=== PATIENT | male | born 1940 | race Caucasian/White ===

== ENCOUNTER → 2023-12-31 10:41 | Outpatient (REF) | payer MEDICARE, OTHER, SELFPAY | LOC: RAD 10:41 | PROVIDERS: ATTENDING PHYSICIAN Advanced Practice Midwife; FAMILY PHYSICIAN Family Medicine | DX: C64.9 Malignant neoplasm of unspecified kidney, except renal pelvis (principal) | CPT/HCPCS: 71046; 73564; 76775 ==

== ENCOUNTER 2025-02-09 15:12 | Emergency (ER) | payer MEDICARE, OTHER, SELFPAY ==
[2025-02-09 15:20] VITALS: BP 169/90
[2025-02-09 16:36] VITALS: BP 158/102
[2025-02-09] MEDS: NSS 1000 IV (16:37)
[2025-02-09 16:47] LABS: % Basophils 0.5 % (0-2); % Eosinophils 2.4 % (0-6); % Immature Granulocytes 0.3 % (0-0.5); % Lymphocytes 11.8 % (20.5-51.1); % Monocytes 7.2 % (1.7-9.3); % Neutrophils 77.8 % (42.2-75.2); Absolute Basophils 0.1 10^3/uL (0-0.2); Absolute Eosinophils 0.3 10^3/uL (0-0.7); Absolute Lymphocytes 1.5 10^3/uL (1.2-3.4); Absolute Monocytes 0.9 10^3/uL (0.1-0.6); Absolute Neutrophils 9.9 10^3/uL (1.4-6.5); Hematocrit 48.2 % (39.0-52.0); Hemoglobin 16.5 g/dL (13.0-18.0); Mean Corp Hgb Conc. 34.2 g/dL (33.0-37.0); Mean Corpuscular Hgb 32.4 pg (27.0-31.0); Mean Corpuscular Volume 94.7 fL (80.0-94.0); Mean Platelet Volume 11.4 fL (7.4-10.4); Nucleated Red Blood Cells % 0 % (-); Platelet Count 169 10^3/uL (130-400); Red Blood Cell Count 5.09 10^6/uL (4.70-6.10); Red Cell Dist. Width 13.5 % (11.5-14.5); White Blood Cell Count 12.7 10^3/uL (4.8-10.8)
[2025-02-09 16:48] LABS: Urine Albumin 2+ (Neg - Trace); Urine Bilirubin Negative (Negative); Urine Character Clear (Clear); Urine Color Yellow; Urine Glucose Negative (Negative); Urine Ketone Negative (Negative); Urine Leukocyte Negative (Negative); Urine Nitrite Negative (Negative); Urine Occult Blood 2+ (Negative); Urine Urobilinogen Negative (Neg - 1+)
[2025-02-09 17:00] VITALS: BP 175/115
[2025-02-09 17:01] LABS: Urine Bacteria Few (Negative); Urine Squamous Cell 0-2 /LPF (Few); Urine White Cell 0-2 /HPF (0-5)
[2025-02-09 17:02] LABS: ALT (SGPT) 17 U/L (0-50); AST (SGOT) 21 U/L (17-59); Albumin 4.3 g/dl (3.5-5.0); Alkaline Phosphatase 63 U/L (38-126); Blood Urea Nitrogen 18 mg/dl (9-20); Calcium 10.6 mg/dl (8.4-10.2); Carbon Dioxide 26 mmol/L (22-30); Chloride 101 mmol/L (98-107); Glucose 99 mg/dl (70-99); Lipase 1351 U/L (23-300); Potassium 4.3 mmol/L (3.5-5.1); Sodium 136 mmol/L (135-145); Total Bilirubin 1.3 mg/dl (0.2-1.3); Total Protein 6.9 g/dl (6.3-8.2); eGFR 59.26
[2025-02-09 17:14] LABS: Troponin I 0.046 ng/ml
[2025-02-09 17:50] VITALS: BP 167/127
--- NOTE | 2025-02-09 17:56 | ED.GENMED ---
History of Present Illness
<Brigitte Miller PA-C - Last Filed: 02/09/25 19:13>
General
Chief Complaint: Abdominal Pain
Source: patient
Exam Limitations: none
Time Seen by Provider: 02/09/25 15:52
Nursing documentation reviewed up to this point in time: agreed with
History of Present Illness
History of Present Illness:
Patient is a 84-year-old male with history of hypertension, kidney cancer s/p left nephrectomy presenting to the emergency department for abdominal pain. Patient states he has had pain in his left lower abdomen past 4 days. There was no radiation
of pain into his groin. However�he did note some mild back discomfort, as well. Symptoms seem to come and go with no clear positional component. Patient has felt mildly nauseous and lightheaded over the past few days. He denies any vomiting,
diarrhea, urinary discomfort. Patient denies any chest pain or shortness of breath.
Patient was seen by his primary care provider today who felt he should be evaluated in the emergency department.
Past History
<Brigitte Miller PA-C - Last Filed: 02/09/25 19:13>
Past History
ED Past Medical History: HTN and Other (Patient has a history of back pain, arthritis, osteoarthritis, carpal tunnel syndrome, renal cell carcinoma)
ED Past Surgical History: Orthopedic, Tonsilectomy and Other (Patient has a history of carpal tunnel surgery as well as total left hip replacement, left renal cell carcinoma removal)
Social History
Tobacco: Non-smoker
Alcohol: Occasional
Drug: None
Personal:
Living: with family
Employment: Retired
Family History
Family History: Other (nc)
Review of Systems
<Brigitte Miller PA-C - Last Filed: 02/09/25 19:13>
Review of Systems
Allergies reviewed?: Yes
All Other Systems: ROS reviewed and negative except as documented in HPI and ROS
Phy Exam
<Brigitte Miller PA-C - Last Filed: 02/09/25 19:13>
Physical Exam
Physical Exam:
Vitals: Hypertensive, otherwise vital signs stable. Afebrile
General: Patient is well appearing, no acute distress. Nontoxic appearing
Skin: Warm and dry, no rashes or lesions
Head: Normocephalic, atraumatic
Eyes: Sclera nonicteric. EOMs intact. No nystagmus.
Throat: Protecting airway
Neck: Normal ROM, no cervical spine tenderness, no meningismus. No JVD
Cardiac: Regular rate and rhythm, no murmurs.
Pulm: Normal respiratory effort, no wheezes, rales, rhonchi heard on exam.
Abdomen: Abdomen soft. Mild tenderness in epigastric region without rebound tenderness or guarding. No rash or ecchymoses.
Extremities: 1+ pitting edema bilateral lower extremities. Palpable DP pulses bilaterally
Neuro: AAOx3. Grossly intact
Psychiatric: Normal affect.
Course
<Brigitte Miller PA-C - Last Filed: 02/09/25 19:13>
Orders/Labs/Results
Orders:
Orders
02/09/25 16:17
0.9% Sodium Chloride 1000 ml [Nss] 1,000 ml IV BOLUS
02/09/25 16:18
Electrocardiogram (*1) Urgent
Reason for Study: Abdominal Pain
EKG- Treatment ONCE
02/09/25 16:29
Complete Blood Count/With Diff Urgent
Comprehensive Metabolic Panel Urgent
Lipase Urgent
Troponin I Urgent
Urinalysis Reflex To Culture Urgent
Date Specimen was Collected: 02/09/25
Time Specimen was Collected: 16:28
Urine Microscopic Reflex Cult Urgent
02/09/25 17:05
CT Abd/pelvis W Iv Cont Urgent
Comment:
Reason For Exam: abdominal pain, nausea, elevated lipase
02/09/25 19:30
EKG- Treatment ONCE
Abnormal Lab Results
02/09/25
16:29
WBC 12.7 H 10^3/uL
(4.8-10.8)
MCV 94.7 H fL
(80.0-94.0)
MCH 32.4 H pg
(27.0-31.0)
MPV 11.4 H fL
(7.4-10.4)
Absolute Neuts (auto) 9.9 H 10^3/uL
(1.4-6.5)
Absolute Monos (auto) 0.9 H 10^3/uL
(0.1-0.6)
Neutrophils % 77.8 H %
(42.2-75.2)
Lymphocytes % 11.8 L %
(20.5-51.1)
Calcium 10.6 H mg/dl
(8.4-10.2)
Troponin I 0.046 H* ng/ml
Lipase 1351 H* U/L
(23-300)
Ur Occult Blood Reflex 2+ A
(Negative)
Urine RBC 7-10 A /HPF
(0-2)
Urine Bacteria (Reflex) Few A
(Negative)
Urine Albumin (Reflex) 2+ A
(Neg - Trace)
02/09/25 16:29
02/09/25 16:29
Vital Signs
Initial and Last Documented VS:
Initial Vital Signs
Temp Pulse Resp BP Pulse Ox
97.8 F 66 16 169/90 99
02/09/25 15:20 02/09/25 15:20 02/09/25 15:20 02/09/25 15:20 02/09/25 15:20
Last Documented Vital Signs
Temp Pulse Resp BP Pulse Ox
97.8 F 70 21 179/108 99
02/09/25 15:20 02/09/25 18:45 02/09/25 18:45 02/09/25 18:28 02/09/25 15:20
<Remigio Macedo, DO - Last Filed: 02/09/25 19:40>
Orders/Labs/Results
Orders:
Orders
02/09/25 16:17
0.9% Sodium Chloride 1000 ml [Nss] 1,000 ml IV BOLUS
02/09/25 16:18
Electrocardiogram (*1) Urgent
Reason for Study: Abdominal Pain
EKG- Treatment ONCE
02/09/25 16:29
Complete Blood Count/With Diff Urgent
Comprehensive Metabolic Panel Urgent
Lipase Urgent
Troponin I Urgent
Urinalysis Reflex To Culture Urgent
Date Specimen was Collected: 02/09/25
Time Specimen was Collected: 16:28
Urine Microscopic Reflex Cult Urgent
02/09/25 17:05
CT Abd/pelvis W Iv Cont Urgent
Comment:
Reason For Exam: abdominal pain, nausea, elevated lipase
02/09/25 19:30
EKG- Treatment ONCE
Abnormal Lab Results
02/09/25
16:29
WBC 12.7 H 10^3/uL
(4.8-10.8)
MCV 94.7 H fL
(80.0-94.0)
MCH 32.4 H pg
(27.0-31.0)
MPV 11.4 H fL
(7.4-10.4)
Absolute Neuts (auto) 9.9 H 10^3/uL
(1.4-6.5)
Absolute Monos (auto) 0.9 H 10^3/uL
(0.1-0.6)
Neutrophils % 77.8 H %
(42.2-75.2)
Lymphocytes % 11.8 L %
(20.5-51.1)
Calcium 10.6 H mg/dl
(8.4-10.2)
Troponin I 0.046 H* ng/ml
Lipase 1351 H* U/L
(23-300)
Ur Occult Blood Reflex 2+ A
(Negative)
Urine RBC 7-10 A /HPF
(0-2)
Urine Bacteria (Reflex) Few A
(Negative)
Urine Albumin (Reflex) 2+ A
(Neg - Trace)
02/09/25 16:29
02/09/25 16:29
Vital Signs
Initial and Last Documented VS:
Initial Vital Signs
Temp Pulse Resp BP Pulse Ox
97.8 F 66 16 169/90 99
02/09/25 15:20 02/09/25 15:20 02/09/25 15:20 02/09/25 15:20 02/09/25 15:20
Last Documented Vital Signs
Temp Pulse Resp BP Pulse Ox
97.8 F 70 21 179/108 99
02/09/25 15:20 02/09/25 18:45 02/09/25 18:45 02/09/25 18:28 02/09/25 15:20
<Brigitte Miller PA-C - Last Filed: 02/09/25 19:13>
MDM/Problems Addressed
Differential Diagnosis Includes:
Not limited to: Viral gastroenteritis, diverticulitis, pancreatitis, appendicitis, pyelonephritis, nephrolithiasis, etc.
MDM/Problems Addressed:
84-year-old male presenting with 4 days of abdominal pain and lightheadedness�referred by PCP after office visit today. No fever, vomiting, chest pain, shortness of breath. Patient hypertensive on arrival, otherwise stable vital signs. Physical
exam as above. While patient describes pain left lower quadrant�he does have mild tenderness in the epigastric region. Abdomen otherwise soft. Differential broad at this time�will give IV fluids and obtain basic labs, urinalysis, troponin and
EKG. Will check CT abdomen/pelvis. Will closely monitor and reassess.
Update: Labs reviewed white count of 12.7. Chemistry unremarkable. Lipase elevated at 1351. Symptoms possibly due to acute pancreatitis although CT is pending. Troponin was found to be elevated to 0.046 although no acute ischemic changes and
there is no EKG. Overall very low suspicion for ACS although will trend troponin. Patient will likely require admission
Update: CT report shows findings suspicious for acute duodenitis versus pancreatitis. I favor acute pancreatitis given elevated lipase. Discussed findings with patient and recommendation of admission to hospital for further fluid resuscitation
and trending of troponin. Patient states he cannot stay in hospital as he has a who suffers from dementia at home and no one to watch her. Risks of leaving AGAINST MEDICAL ADVICE including worsening of symptoms/disease and/or were
discussed with the patient by both myself and attending physician who recommended admission, as well. Patient aware that he has acute pancreatitis, significantly elevated blood pressure, and an elevated troponin. Patient expressed verbal
understanding and signed AMA form. Patient will follow with PCP and return if symptoms persist/worsen. Advise clear liquid diet.
Chronic conditions affecting care:
Hypertension
Acute Exacerbation and/or Progression of Chronic Illness:
Acutely hypertensive, acute pancreatitis
<Brigitte Miller PA-C - Last Filed: 02/09/25 19:13>
*Radiology
Radiology exam reviewed: preliminary read by ED provider and radiology read reviewed
*Pulse Oximetry
Patient hypoxic: no
*EKG
Interpreted by ED Provider?: Yes
EKG Intrepretation Date: 02/09/25
Interpretation: abnormal
Comparison EKG: no changes
Heart Rate: 71
Rate: normal
Rhythm: sinus
[place]: normal axis
Interval: normal QT interval
QRS Pattern: right bundle branch block
Ischemia: no ischemia
*[facility] Center Professional Interpretation
Rate: normal
Interpretation: normal
Heart Rate: 62
Rhythm: sinus
*Critical Care Note
Total Time (30-74mins, 75-104mins- exclusive of procedures): Not Applicable
<Brigitte Miller PA-C - Last Filed: 02/09/25 19:13>
Patient Management
Escalation/DeEscalation of care consider admission/obs:
Admission recommended to patient given acute pancreatitis and elevated troponin�patient signed out AGAINST MEDICAL ADVICE
ED Attending Note
<Brigitte Miller PA-C - Last Filed: 02/09/25 19:13>
-
Portions of this chart may have been created with voice recognition software.� Occasional wrong word or��sound alike� substitutions may have occurred due to the inherent limitations of voice recognition software.
<Remigio Macedo, - Last Filed: 02/09/25 19:40>
ED Attending Note
Patient seen and examined by attending physician: Yes
I performed a history and physical exam of patient and discussed management with resident, I reviewed resident's note and agree with documented findings and plan of care.: Yes
ED Attending Note:
I have reviewed and agree with history treatment plan by Brigitte Rodriguez. My exam revealed 84-year-old male no acute distress, mild epigastric tenderness. Patient with pancreatitis, slight troponin elevation, doubt ischemic. Patient feels well at
this time and would like to leave AGAINST MEDICAL ADVICE, as he is concerned about his at home with dementia. He understands the risks.
Discharge Plan
Departure
Patient Disposition: Against Medical Advice
Date of Disposition: 02/09/25
Time of Disposition: 18:19
Patient with high blood pressure during this ER visit?: Yes
Discharge Problem:
Acute pancreatitis, Elevated troponin, Hypertension
Instructions: Acute pancreatitis, High blood pressure in adults, Clear Liquid Diet
Prescriptions:
No Action
aspirin [Adult Low Dose Aspirin] 81 MG tablet,delayed release (DR/EC)
81 mg PO DAILY
furosemide 40 mg Tablet
40 mg PO DAILY
carvedilol 6.25 mg Tablet
6.25 mg PO BID
acetaminophen 650 mg Tablet Extended Release
1,300 mg PO DAILYPRN PRN (Reason: mild pain)
ibuprofen 200 mg Tablet
400 mg PO DAILY
olmesartan 20 mg Tablet
20 mg PO DAILY
rosuvastatin 10 mg Tablet
10 mg PO QPM
cholecalciferol (vitamin D3) [Vitamin D3] 25 mcg (1,000 unit) Tablet
25 mcg PO DAILY
Referrals:
Stepan Aguayo MD [Family Provider] - Follow up in 2-3 days
Activity Restrictions/Additional Instructions:
Return to the emergency department if your symptoms persist and/or worsen
-As discussed�you chose to leave AGAINST MEDICAL ADVICE today from emergency department.
-You should follow a clear liquid diet for the next few days.
Follow-up with your primary care provider for further evaluation/management shortly for further management
Interventions
Interventions:
*Risk Screen - Suicide Last Done: 02/09/25 15:20
*General Assessment Last Done: 02/09/25 16:30
*Neglect/Abuse Screening Last Done: 02/09/25 15:23
*Nursing Disposition Last Done: 02/09/25 19:13
[id number] Assessment Last Done: 02/09/25 16:00
Discharge Date and Time
Discharge Date/Time: 02/09/25 19:14
Print Language: MONEGASQUE
[2025-02-09 18:02] VITALS: BP 177/126
[2025-02-09 18:28] VITALS: BP 179/108
== END 2025-02-09 19:14 | disposition left against medical advice (07) ==
LOC: EMR 15:12
PROVIDERS: Physician Assistant; EMERGENCY PHYSICIAN Emergency Medicine; FAMILY PHYSICIAN Family Medicine
DX: K85.90 Acute pancreatitis without necrosis or infection, unspecified (principal); R79.89 Other specified abnormal findings of blood chemistry; I10 Essential (primary) hypertension; Z90.5 Acquired absence of kidney; Z85.528 Personal history of other malignant neoplasm of kidney
CPT/HCPCS: 96360; 99284; 74177; 80053; 81003; 81015; 83690; 84484; 85025; 93005; Q9967